=== PATIENT | male | born 1990 | race Caucasian/White ===

== ENCOUNTER 2022-06-13 14:03 | Emergency (ER) | payer BC, SELFPAY ==
--- NOTE | 2022-06-13 14:04 | ED.LOWEXIN ---
HPI - Extremity Injury (Lower) General Chief Complaint: Extremity Problem,Nontraumatic Stated Complaint: Right Leg/Ankle Pain Time Seen by Provider: 06/13/22 14:04 Source: patient Mode of arrival: ambulatory Limitations: no limitations History of Present Illness HPI Narrative: Marciano is a 32-year-old male patient presenting to the clinic today with complaints of right leg/ankle pain since this morning. He reports he noticed a knot to his right lower lateral leg with mild swelling. He thinks he may have a skin infection. He denies any fever or chills. Related Data Home Medications Medication Instructions Recorded Confirmed amlodipine 5 mg tablet 5 mg PO DAILY 06/13/22 06/13/22 losartan 100 1 tablet PO DAILY 06/13/22 06/13/22 mg-hydrochlorothiazide 12.5 mg tablet Allergies Allergy/AdvReac Type Severity Reaction Status Date / Time No Known Drug Allergies Allergy Mild Other Verified 06/13/22 14:06 Review of Systems Review of Systems: Pertinent positives per HPI. Patient denies any fever, chills, rash, headache, visual changes, dizziness, cough, runny nose, sore throat, shortness of breath, chest pain, palpitations, nausea, vomiting, diarrhea, constipation, abdominal pain, or any urinary issues. PMFSH Comments At the time of my signature, I reviewed and agree with the nursing past medical, surgical, social, and family history. There is no relevant family history pertinent to the patient complaint. Exam Narrative: General: Well-developed, well nourished, in no apparent distress Head: Normocephalic, atraumatic. Cardio: Regular rate and rhythm, s1 and s2 normal, no murmur appreciated. Resp: Clear to auscultation bilaterally, no rhonchi, rales, wheezing or rubs. Integumentary: [place], warm, and dry, mild swollen area with infected hair sore to the right lateral lower extremity. Course Course Emergency Course: Portions of this record may have been created with voice recognition software. Level of Care: Express Care Visit Vital Signs Vital signs: Vital Signs Temperature 37.4 C 06/13/22 14:20 Pulse Rate 116 H 06/13/22 14:20 Respiratory Rate 16 06/13/22 14:20 Blood Pressure 138/93 H 06/13/22 14:20 Pulse Oximetry 16 L 06/13/22 14:20 Oxygen Delivery Room Air 06/13/22 14:20 Temperature 37.4 C 06/13/22 14:20 Pulse Rate 116 H 06/13/22 14:20 Respiratory Rate 16 06/13/22 14:20 Blood Pressure 138/93 H 06/13/22 14:20 Pulse Oximetry 16 L 06/13/22 14:20 Oxygen Delivery Room Air 06/13/22 14:20 Vital signs reviewed MDM - Extremity Injury (Lower) MDM Narrative Medical decision making narrative: At the time of visit patient is resting comfortably on the exam table. I suspect as folliculitis. Prescription for doxycycline was sent to the pharmacy and supportive measures were discussed with the patient in the patient's significant other. Differential Diagnosis Differential diagnosis: Likely other (Folliculitis, skin infection, cellulitis, abscess) Discharge Plan Discharge Clinical Impression: Folliculitis Patient Disposition: Home, Self-Care Condition: Stable Instructions: Antibiotic Form, Folliculitis (ED) Additional Instructions: Take prescription medications only as prescribed-doxycycline Increase fluids and stay well hydrated Tylenol/motrin for pain/fever Go to the ED if you develop a worsening in your condition- high fever not controlled by Tylenol or Motrin, dehydration, weakness, lethargy, shortness of breath, increase in swelling, increase in redness or pain, or chest pain. Follow up with your PCP in 3-5 days if symptoms persist. Prescriptions: New doxycycline hyclate 100 mg capsule 100 mg PO BID 7 Days Qty: 14 0RF No Action amlodipine 5 mg tablet 5 mg PO DAILY losartan-hydrochlorothiazide 100-12.5 mg Tablet 1 tablet PO DAILY Follow-up/Referrals: Frannie,Radha Hauser MD [Primary Care Provider] - Stand Alone Forms:
[2022-06-13 14:20] VITALS: BP 138/93; PULSE 116; RESP 16; TEMP 37.4; O2SAT 16
== END 2022-06-13 14:54 | disposition home or self-care (01) ==
PROVIDERS: Emergency Provider Nurse Practitioner Family; PCP Family Medicine
DX: L73.9 Follicular disorder, unspecified (principal); I10 Essential (primary) hypertension
CPT/HCPCS: 99213; G0463

== ENCOUNTER 2023-07-02 08:12 | Emergency (ER) | payer BC, SELFPAY ==
[2023-07-02 08:24] VITALS: BP 138/103; PULSE 101; RESP 16; TEMP 37.4; O2SAT 98
--- NOTE | 2023-07-02 08:30 | ED.URI ---
HPI - URI/Sore Throat General Chief Complaint: Upper Respiratory Infection Stated Complaint: throat pain,sinus Time Seen by Provider: 07/02/23 08:30 Source: patient, RN notes reviewed and old records reviewed Mode of arrival: ambulatory Limitations: no limitations History of Present Illness HPI Narrative: 33-year-old male presents to the [facility] with a sore throat since Saturday states it was worse on Saturday. Denies fevers. Has been taking DayQuil and NyQuil. Onset (ago): day(s) (3) Treatments prior to arrival: cold medicine Related Data Home Medications Medication Instructions Recorded Confirmed amlodipine 5 mg tablet 5 mg PO DAILY 06/13/22 07/02/23 losartan 100 1 tablet PO DAILY 06/13/22 07/02/23 mg-hydrochlorothiazide 12.5 mg tablet Allergies Allergy/AdvReac Type Severity Reaction Status Date / Time No Known Drug Allergies Allergy Mild Other Verified 07/02/23 08:24 Review of Systems Review of Systems: All systems reviewed & are unremarkable except as noted in HPI and below Constitutional: Constitutional: Reports no additional constitutional complaints Eyes: Eyes: Reports no additional eye complaints ENT: Reports as per HPI and Reports sore throat Cardiovascular: Cardiovascular: Reports no additional cardiovascular complaints, Denies chest pain and Denies dyspnea Respiratory: Respiratory: Reports no additional respiratory complaints, Denies chest congestion, Denies cough and Denies dyspnea Gastrointestinal: Gastrointestinal: Reports no additional gastrointestinal complaints, Denies abdominal pain, Denies nausea and Denies vomiting Musculoskeletal: Musculoskeletal: Reports no additional musculoskeletal complaints Integumentary/Breasts: Skin/Breast: Reports system reviewed and no additional complaints, except as docu Neurologic: Reports system reviewed and no additional complaints, except as documented Psychiatric: Psychiatric: Reports no additional psychiatric complaints Allergic/Immunologic: Allergic/Immunologic: Reports no additional allergic/immunologic complaints PMFSH Past Medical History Medical History History of high blood pressure Comments At the time of my signature, I reviewed and agree with the nursing past medical, surgical, social, and family history. There is no relevant family history pertinent to the patient complaint. Exam Const: General: cooperative, healthy appearing, comfortable, no acute distress, well developed, alert and well nourished Nutritional Appearance: well nourished Orientation/consciousness: patient oriented x3 Limitations: no limitations HENMT: Head: normal to inspection Ears: hearing grossly normal bilaterally, external ears normal, TM's normal bilaterally, EAC's normal, mastoids normal and no periauricular adenopathy Face/Nose/Sinus: Normal external nose present, Normal nares present, Normal nasal mucous membranes and turbinates present, No nasal discharge present, normal facial exam, face symmetric and No sinus tenderness Face and sinus: normal facial exam and face symmetric Mouth: Yes Normal oral and palatal mucosa present, Yes lip normal, Yes tongue normal and Yes moist mucous membranes Throat: posterior oropharynx normal, uvula midline, abnormal tonsil bilateral hypertrophy 2+; no erythema and no exudates and postnasal drainage Eyes: General: appearance normal, both eyes and all related structures Alignment and Position: alignment normal Periorbital: periorbital findings normal Pupils: Equal, round and reactive pupils present EOM: EOMs intact bilaterally Neck: Neck: normal visual inspection, full ROM, no lymphadenopathy and no meningeal signs Chest: Chest palpation & inspection: normal inspection of the chest Resp: Effort & Inspection: normal respiratory effort and able to speak in complete sentences Auscultation: clear to auscultation bilaterally, no crackles, no rales, no rhonchi
== END 2023-07-02 09:00 | disposition home or self-care (01) ==
PROVIDERS: Emergency Provider Nurse Practitioner; PCP Family Medicine
DX: J06.9 Acute upper respiratory infection, unspecified (principal); R09.82 Postnasal drip; J02.9 Acute pharyngitis, unspecified; I10 Essential (primary) hypertension
CPT/HCPCS: 87081; 87804; 87880; 99213; G0463

== ENCOUNTER 2023-12-13 18:42 | Emergency (ER) | payer BC, SELFPAY ==
--- NOTE | ~2023-12-13 | XR_ITS ---
XR foot LT min 3V Ordering provider: NOMAN Angulo History: . left foot pain . Comparison: December 13, 2023 ankle x-ray. FINDINGS: BONES: No acute fracture or dislocation. Old healed fracture of the fifth metatarsal bone is noted. O ld bony fragments is seen near to the medial malleolus and near to the lateral malleolus.. JOINT SPACES: Normal. No tarsal coalition. SOFT TISSUES: Normal. IMPRESSION: No acute osseous abnormality left foot. Old healed fracture in the fifth metatarsal bone. Old chip fractures in the lateral and medial malleoli area. Reviewed, dictated and finalized at location A.
--- NOTE | ~2023-12-13 | XR_ITS ---
XR ankle LT min 3V Ordering provider: NOMAN Angulo History: . left ankle pain, no injury, hx avulsion fx 8 years ago . Comparison: April 20, 2016 FINDINGS: BONES: No acute fracture or dislocation. Fragment seen near to the fibula is unchanged. Healed fracture in the fifth metatarsal bone is highly suggestive. Calcaneal spur. JOINT SPACES: The ankle mortise is normal. SOFT TISSUES: Normal. IMPRESSION: No acute osseous abnormality left ankle. Old fracture in the area of the fibula unchanged. Healed old fracture in the fifth metatarsal bone. Clinical correlation advised. Reviewed, dictated and finalized at location A.
[2023-12-13 18:54] VITALS: BP 156/85; PULSE 124; RESP 18; TEMP 37.1; O2SAT 100
--- NOTE | 2023-12-13 19:26 | ED.GENADULT ---
HPI - General Adult General Chief complaint: Extremity Injury, Lower Stated complaint: Left Ankle Pain Source: patient Mode of arrival: ambulatory Limitations: no limitations History of Present Illness HPI narrative: Patient presents for evaluation of pain in the left ankle and foot for the last week. He cannot identify any recent precipitating cause or injury. He indicates in 2016 he twisted his ankle and had some type of fracture and soft tissue injury. He indicates that over the course of last week his pain has varied between a level of 5-7 on a scale of 1-10. He describes the pain as sharp. He has taken ibuprofen for symptoms with minimal improvement thereafter. Weight-bearing and movement make his symptoms worse. He reports a tingling sensation in the bottom of his foot. Related Data Home Medications Medication Instructions Recorded Confirmed amlodipine 5 mg tablet 5 mg PO DAILY 06/13/22 12/13/23 losartan 100 1 tablet PO DAILY 06/13/22 12/13/23 mg-hydrochlorothiazide 12.5 mg tablet Allergies Allergy/AdvReac Type Severity Reaction Status Date / Time No Known Drug Allergies Allergy Mild Other Verified 12/13/23 18:45 Review of Systems Review of Systems: CONSTITUTIONAL: Denies fever, chills, or sweats. EYES: Denies visual changes, redness, or discharge. ENT: Denies rhinorrhea, congestion, sore throat, or otalgia. CARDIOVASCULAR: Denies chest pain, palpitations, or edema. RESPIRATORY: Denies cough or dyspnea. GASTROINTESTINAL: Denies abdominal pain, nausea, vomiting, or diarrhea. GENITOURINARY: Denies dysuria or hematuria. SKIN: Denies rash or itching. MUSCULOSKELETAL: Reports pain in the left foot and ankle NEUROLOGIC: Denies headache, numbness, dizziness, or weakness. PSYCHIATRIC: Denies anxiety or depression. [facility] Past Medical History Medical History (Updated 12/13/23 @ 20:08 by NOMAN Angulo, JERSON) History of high blood pressure Surgical History Surgical History No pertinent past surgical history Family History Family History Mother Family history non-contributory Social History Social History Smoking status: Never smoker Gender identity (if verbalized by the patient): Male Sexual Orientation (if Verbalized by the Patient): Straight or Heterosexual Spiritual care concerns: No Exam Narrative: GENERAL: Well-appearing, well-nourished, and in no acute distress. HEAD: Normocephalic, atraumatic. EYES: PERRLA and EOMI. ENT: Nares clear, no rhinorrhea or epistaxis. Mucous membranes moist. Oropharynx without tonsillar hypertrophy exudate or other lesions. Bilateral TMs pearly hooper nonbulging NECK: Supple. No adenopathy or masses. No carotid bruits or JVD CHEST: Clear to auscultation. No respiratory distress. No wheezes rales or rhonchi HEART: Regular rate and rhythm. No murmur heard. Normal peripheral pulses. ABDOMEN: Soft, nontender, nondistended, normal active bowel sounds. EXTREMITIES: able to dorsi and plantar flex of left foot but does so with hesitancy secondary to pain. There is tenderness in the anteromedial aspect and anterolateral aspect of the proximal left foot. no gross swelling. No crepitus or deformity. SKIN: Warm, dry, no rash. NEURO: No focal deficits. Alert and oriented x3. PSYCH: Normal mood and affect. Course Course Emergency Course: This is a 33-year-old male who presented for evaluation of left foot and ankle pain. X-rays were negative for acute fracture. Was provided with Kar wrap. He would like to take ibuprofen for pain at home. Advised on RICE therapy. Follow-up with primary provider. Go to the ER for worsening symptoms. Patient in agreement with plan of care. Level of Care: Express Care Visit Vital Signs Vital signs: Vital Signs Temper
== END 2023-12-13 20:10 | disposition home or self-care (01) ==
PROVIDERS: Emergency Provider Nurse Practitioner; PCP Family Medicine
DX: S96.912A Strain of unspecified muscle and tendon at ankle and foot level, left foot, initial encounter (principal); X58.XXXA Exposure to other specified factors, initial encounter; I10 Essential (primary) hypertension
CPT/HCPCS: 73610; 73630; 99213; G0463

== ENCOUNTER 2024-08-14 | Day surgery (SDC) | payer OTHER, SELFPAY ==
[2024-08-10 11:33] VITALS: BMI 36.1
--- OUTSIDE RECORDS SUMMARY | 2024-08-14 00:03 | XMS_ITS | Encounter Summary ---
Author Organization [facility] Address [address] [place] [id number] Care Team Providers Care Cnc Maintenance Technician Name Role Phone Radha Dangelo MD Primary Care Provider [phone] Encounter Details Date Type Department Care Team (Late st Contact Info) Description 03/30/2017 Abstract [place] [address] , Generic ConversionMD Social History Tobacco Use Types Packs/Day Years Used Date Smoking Tobacco: Never Assessed Sex and Gender Information Value Date Recorded Sex Assigned at Not on file Legal Sex Male 4:21 PM CDT Gender Identity Not on file Sexual Orientation Not on file documented as of this encounter Plan of Treatment Not on file documented as of this encounter Visit Diagnoses Not on filedocumented in this encounter Care Teams Cnc Maintenance Technician Relationship Specialty Start Date End Date Radha Dangelo MD [address] [address] PCP - General 10/11/14 documented as of this encounter
--- OUTSIDE RECORDS SUMMARY | 2024-08-14 00:03 | XMS_ITS | Clinical Summary ---
Author Organization [facility] Address [address] [place] [id number] Care Team Providers Care Hand Bootmaker Name Role Phone Radha Dangelo MD Primary Care Provider [phone] Social History Tobacco Use Types Packs/Day Years Used Date Smoking Tobacco: Never Assessed Sex and Gender Information Value Date Recorded Sex Assigned at Not on file Legal Sex Male 4:21 PM CDT Gender Identity Not on file Sexual Orientation Not on file Plan of Treatment Health Maintenance Due Date Last Done Comments Annual Physical 1995 Hepatitis C 2010 DTaP, Tdap and Td Vaccines ( 1 - Tdap) 2011 Hepatitis B Vaccines (1 of 3 - 19+ 3-dose series) 2011 COVID-19 Vaccine (2023-2 5 season) 2024 Influenza Adult (#1) 2024 HPV Vaccines Aged Out No longer eligi ble based on patient's age to complete this topic Meningococcal B Vaccine Aged Out No l onger eligible based on patient's age to complete this topic Meningococcal Vaccine Aged Out No suresh angie eligible based on patient's age to complete this topic Pneumococcal Vaccine: Pediat rics (0 to 5 Years) and At-Risk Patients (6 to 64 Years) Aged Out No longer eligible b ased on patient's age to complete this topic RSV Immunizations Under 20 Months Aged Out No longer eligible based on patient's age to complete this topic Care Teams Hand Bootmaker Relationship Specialty Start Date End Date Radha Dangelo MD [address] [address] PCP - General 10/11/14
[2024-08-14 13:03] VITALS: BP 154/93; PULSE 98; RESP 18; TEMP 36.1; O2SAT 99; BMI 35.6
[2024-08-14] MEDS: LACTATED RINGERS 1,000 ML 150 ML IV CONT (13:10)
--- NOTE | 2024-08-14 13:19 | P.PNAN_ITS ---
Anes - Initial Pre Proc Eval Procedure: Operation Date: 08/14/24 14:00 Proposed Procedures p Esophagogastroduodenoscopy - Iftikhar Awad MD Date/Time: 08/14/24 13:19 Surgeon: Iftikhar Awad MD Pre Op Diagnosis: GERD,Dysphagia Patient Data Age: 34 Gender: M Height: 1.98 m Weight: 139.7 kg Last Vital Signs Temp 36.1 C L 08/14/24 13:03 Pulse 98 08/14/24 13:03 Resp 18 08/14/24 13:03 BP 154/93 H 08/14/24 13:03 Pulse Ox 99 08/14/24 13:03 O2 Del Method Room Air 08/14/24 13:03 Allergies Allergy/AdvReac Type Severity Reaction Status Date / Time No Known Drug Allergies Allergy Mild Other Verified 08/14/24 13:00 Home Medications ?Medication ?Instructions ?Recorded ?Confirmed ?Type fluticasone propionate 50 2 spray intranasal DAILY #16 grams 07/02/23 08/14/24 Rx mcg/actuation nasal spray,suspension (Flonase Allergy Relief) CBD topical 4-6XD 06/29/24 06/29/24 History cyclobenzaprine 10 mg tablet 10 mg PO BID PRN muscle spasm #20 06/29/24 08/10/24 Rx tabs amlodipine 2.5 mg tablet 2.5 mg PO DAILY #90 tabs 08/04/24 08/14/24 Rx irbesartan 150 1 tablet PO . q.a.m. #90 tabs 08/04/24 08/14/24 Rx mg-hydrochlorothiazide 12.5 mg tablet omeprazole 20 mg tablet,delayed 20 mg PO DAILY #90 tabs 08/04/24 08/10/24 Rx release Patient hx anesthesia problems: none Family hx anesthesia problems: none Results Review: All pre-operative results and documents have been reviewed as part of the pre- operative evaluation. [facility] Past Medical History Medical History Mixed hyperlipidemia cholesterol 224, triglycerides 307, HDL 40, LDL 140 with ratio 5.6 on 06/20/2024. Chronic low back pain without sciatica Encounter for wellness examination in adult Seasonal allergic rhinitis Chronic tonsillar hypertrophy BMI 36.0-36.9,adult Obesity (BMI 30-39.9) Dysphagia GERD (gastroesophageal reflux disease) Essential hypertension History of high blood pressure Surgical History Surgical History No pertinent past surgical history Family History Family History Mother Family history non-contributory Social History Social History Smoking status: Never smoker Alcohol intake: current Substance use: never Gender identity (if verbalized by the patient): Male Sexual Orientation (if Verbalized by the Patient): Straight or Heterosexual Spiritual care concerns: No Anes - Eval Final PreProcedure Day of Procedure 08/14/24 13:19 Patient weight: obese Heart: regular rate and rhythm Lungs: decreased breath sounds Airway: Mallampati scale class II Neurological: alert and oriented Last oral intake: >/= 8 hours ASA classification: III Emergent: no Anesthetic plan: proceed Anesthesia type and monitoring: general GIVS and standard monitoring Results Review: All pre-operative results and documents have been reviewed as part of the pre- operative evaluation. Informed Consent: The patient's anesthetic plan and its attendant risks and benefits were discussed with the patient/family/POA. Questions were solicited and answers provided to the satisfaction of the patient/family/POA.
--- NOTE | 2024-08-14 13:36 | P.HP_ITS ---
History of Present Illness History of Present Illness Consent: Risks, benefits, and alternatives have been discussed and questions answered. Patient agrees to proceed with procedure. Chief complaint: GERD,Dysphagia Narrative: Marciano Lanier is a 34 year old male here for first egd, h/o gerd on omeprazole doing better but sometimes dysphagia- food won't go down and have to regurgitate Review of Systems Review of Systems: All systems reviewed & are unremarkable except as noted in HPI and below PMFSH Past Medical History Medical History Mixed hyperlipidemia cholesterol 224, triglycerides 307, HDL 40, LDL 140 with ratio 5.6 on . Chronic low back pain without sciatica Encounter for wellness examination in adult Seasonal allergic rhinitis Chronic tonsillar hypertrophy BMI 36.0-36.9,adult Obesity (BMI 30-39.9) Dysphagia GERD (gastroesophageal reflux disease) Essential hypertension History of high blood pressure Surgical History Surgical History No pertinent past surgical history Family History Family History Mother Family history non-contributory Social History Social History Smoking status: Never smoker Alcohol intake: current Substance use: never Gender identity (if verbalized by the patient): Male Sexual Orientation (if Verbalized by the Patient): Straight or Heterosexual Spiritual care concerns: No Meds Home Medications and Allergies Home Medications ?Medication ?Instructions ?Recorded ?Confirmed ?Type fluticasone propionate 50 2 spray intranasal DAILY #16 grams 07/02/23 08/14/24 Rx mcg/actuation nasal spray,suspension (Flonase Allergy Relief) CBD topical 4-6XD 06/29/24 06/29/24 History cyclobenzaprine 10 mg tablet 10 mg PO BID PRN muscle spasm #20 06/29/24 08/10/24 Rx tabs amlodipine 2.5 mg tablet 2.5 mg PO DAILY #90 tabs 08/04/24 08/14/24 Rx irbesartan 150 1 tablet PO . q.a.m. #90 tabs 08/04/24 08/14/24 Rx mg-hydrochlorothiazide 12.5 mg tablet omeprazole 20 mg tablet,delayed 20 mg PO DAILY #90 tabs 08/04/24 08/10/24 Rx release Allergies Allergy/AdvReac Type Severity Reaction Status Date / Time No Known Drug Allergies Allergy Mild Other Verified 08/14/24 13:00 Vital Signs Vital Signs - 24 hr 08/14/24 13:03 Temperature 97 F L Pulse Rate 98 Respiratory Rate 18 Blood Pressure 154/93 H Pulse Oximetry 99 Oxygen Delivery Room Air Exam Const: General: comfortable and no acute distress HENMT: Face/Nose/Sinus: Normal nares present Eyes: General: appearance normal, both eyes and all related structures Neck: Neck: no JVD Resp: Auscultation: clear to auscultation bilaterally Cardio: Rate: regular rate Rhythm: regular rhythm GI: Inspection: non-distended GI Palp: Yes Soft to palpation Skin: General skin exam: normal color Neuro: General: gait normal Speech: normal speech Extrem: General: normal to inspection Psych: Mental Status: mental status grossly normal Assessment and Plan Assessment and plan (1) GERD (gastroesophageal reflux disease): Qualifiers: Esophagitis presence: esophagitis presence not specified Qualified Code(s): K21.9 - Gastro-esophageal reflux disease without esophagitis Code(s): K21.9 - Gastro-esophageal reflux disease without esophagitis Status: Acute Assessment and Plan: egd with bx assess if EoE (2) Dysphagia: Qualifiers: Dysphagia type: unspecified Qualified Code(s): R13.10 - Dysphagia, unspecified Code(s): R13.10 - Dysphagia, unspecified Status: Acute
[2024-08-14] MEDS: BENZOCAINE (*SP) 60 ML SPRAY CAN (HURRICAINE) 1 SPRAY MUCOUS MEM (13:40)
[2024-08-14 13:53] VITALS: BP 134/91; PULSE 96; RESP 26; O2SAT 99
[2024-08-14 14:03] VITALS: BP 132/87; PULSE 91; RESP 20; O2SAT 99
[2024-08-14 14:13] VITALS: BP 120/92; PULSE 80; RESP 18; O2SAT 100
== END 2024-08-14 14:24 | disposition home or self-care (01) ==
PROVIDERS: PCP Family Medicine; Referring Provider Family Medicine; Visit Provider Internal Medicine Gastroenterology
PROC: 0DJ08ZZ Inspection of Upper Intestinal Tract, Via Natural or Artificial Opening Endoscopic (ICD-10-PCS; CPT 43249; principal; 2024-08-14 14:00)
DX: K22.2 Esophageal obstruction (principal); K21.00 Gastro-esophageal reflux disease with esophagitis, without bleeding; E66.9 Obesity, unspecified; Z68.35 Body mass index [BMI] 35.0-35.9, adult
CPT/HCPCS: 43249; 43239; 88305; C1726; J1596; J2003; J2704; J7120

== ENCOUNTER 2024-11-11 11:31 | Emergency (ER) | payer OTHER, SELFPAY ==
--- NOTE | ~2024-11-11 | XR_ITS ---
XR ankle LT min 3V Ordering provider: Alberto Coates APRN History: . ankle pain/injury-roll injury . Comparison: None. FINDINGS: BONES: No acute fracture or dislocation. JOINT SPACES: The ankle mortise is normal. SOFT TISSUES: Normal. Calcaneus spur. Ossification of the insertion of the tendo Achilles. IMPRESSION: No definite acute osseous abnormality left ankle. Reviewed, dictated and finalized at location A.
[2024-11-11 11:38] VITALS: BP 181/150; PULSE 125; RESP 18; TEMP 36.8; O2SAT 98
[2024-11-11 11:44] VITALS: BP 131/90
--- NOTE | 2024-11-11 11:44 | ED_ITS ---
HPI - Extremity Injury (Lower) General Chief Complaint: Extremity Injury, Lower Stated Complaint: LT Ankle Injury Time Seen by Provider: 11/11/24 11:44 Source: patient Mode of arrival: ambulatory Limitations: no limitations History of Present Illness HPI Narrative: Marciano is a 34-year-old male patient presenting to the clinic today with complaints of a left ankle injury/pain. He reports he rolled his left ankle on Saturday night. States having pain to the lateral and medial ankle. Pain has gradually gotten worse. Has been resting, icing, and elevating and taking ibuprofen. History of fracture to the left foot in the past Related Data Home Medications ?Medication ?Instructions ?Recorded ?Confirmed ?Last Taken ?Type CBD topical 4-6XD 06/29/24 06/29/24 Unknown History Allergies Allergy/AdvReac Type Severity Reaction Status Date / Time No Known Drug Allergies Allergy Mild Other Verified 11/11/24 11:35 Review of Systems Review of Systems: Pertinent positives per HPI. Patient denies any fever, chills, rash, headache, visual changes, dizziness, cough, runny nose, sore throat, shortness of breath, chest pain, palpitations, nausea, vomiting, diarrhea, constipation, abdominal pain, or any urinary issues. PENDING SALE TO [facility] Past Medical History Medical History Acute non-recurrent maxillary sinusitis Mixed hyperlipidemia cholesterol 224, triglycerides 307, HDL 40, LDL 140 with ratio 5.6 on 06/20/2024. Chronic low back pain without sciatica Encounter for wellness examination in adult Seasonal allergic rhinitis Chronic tonsillar hypertrophy BMI 36.0-36.9,adult Obesity (BMI 30-39.9) Dysphagia GERD (gastroesophageal reflux disease) normal EGD 08/14/2024 with esophageal ring dilated. chronic reflux esophagitis on biopsies. Essential hypertension History of high blood pressure Surgical History Surgical History No pertinent past surgical history Family History Family History Mother Family history non-contributory Social History Social History Smoking status: Never smoker Alcohol intake: current Substance use: never Substance use type: does not use Living arrangements: with family Gender identity (if verbalized by the patient): Male Sexual Orientation (if Verbalized by the Patient): Straight or Heterosexual Spiritual care concerns: No Comments At the time of my signature, I reviewed and agree with the nursing past medical, surgical, social, and family history. There is no relevant family history pertinent to the patient complaint. Exam Narrative: General: Well-developed, well nourished, in no apparent distress Head: Normocephalic, atraumatic. Cardio: Regular rate and rhythm, s1 and s2 normal, no murmur appreciated. Resp: Clear to auscultation bilaterally, no rhonchi, rales, wheezing or rubs. Musculoskeletal: No deformity, tender to palpation over the lateral and medial left ankle, pain with plantar and dorsal flexion against resistance, pain with valgus and varus testing, grossly normal range of motion, muscle strength strong and equal, peripheral pulse strong, no edema, no cyanosis, normal gait and station Course Course Emergency Course: Portions of this record may have been created with voice recognition software. Level of Care: Express Care Visit Vital Signs Vital signs: Vital Signs Temperature 36.8 C 11/11/24 11:38 Pulse Rate 125 H 11/11/24 11:38 Respiratory Rate 18 11/11/24 11:38 Blood Pressure 181/150 H 11/11/24 11:38 Pulse Oximetry 98 11/11/24 11:38 Oxygen Delivery Room Air 11/11/24 11:38 Temperature 36.8 C 11/11/24 11:38 Pulse Rate 125 H 11/11/24 11:38 Respiratory Rate 18 11/11/24 11:38 Blood Pressure 131/90 11/11/24 11:44 Pulse Oximetry 98 11/11/24 11:38 Oxygen Delivery Room Air 11/11/24 11:38 Vital signs reviewed MDM - Extremity Injury (Lower) MDM Narrative Medical decision making narrative: At the time of visit patient is resting comfortably on the exam table. Patient appears to be nontoxic. Diagnostics: X-ray of the left ankle was performed and was negative for any sign of fracture or malalignment. Plan: I suspect patient has an ankle sprain. Supportive measures were discussed with the patient and they voiced understanding discharge instructions and agrees to treatment plan. Return precautions reviewed Differential Diagnosis Differential diagnosis: Likely ankle sprain and strain, ankle fracture and other (Soft tissue injury, ankle contusion) Imaging Data Radiologist's impression: ITS Impressions Ankle X-Ray 11/11/24 12:08 IMPRESSION: No definite acute osseous abnormality left ankle. Discharge Plan Discharge Clinical Impression: Left ankle sprain Qualifiers: Encounter type: initial encounter Involved ligament of ankle: unspecified ligament Qualified Code(s): S93.402A - Sprain of unspecified ligament of left ankle, initial encounter Patient Disposition: Home Condition: Stable Instructions: Antibiotic Form, Ankle Sprain (ED), Ankle Stirrup Splint (ED) Additional Instructions: Left ankle X-rays negative for any sign of fracture or malalignment. May wear ankle strep splint when ambulating/bearing weight Rest, ice, elevate, and wear cristiana wrap as directed Tylenol/motrin for pain as discussed. Gradually bear weight No running or sports until healed. Follow up with your PCP if symptoms persist more than 1 week. Patient Language: Colombian Prescriptions: No Action fluticasone propionate [Flonase Allergy Relief] 50 mcg/actuation spray,suspension 2 spray intranasal DAILY Qty: 16 0RF Rx Instructions: administer into each nostril CBD topical 4-6XD omeprazole 20 mg tablet,delayed release (DR/EC) 20 mg PO DAILY Qty: 90 3RF amlodipine 2.5 mg tablet 2.5 mg PO DAILY Qty: 90 3RF irbesartan-hydrochlorothiazide 150-12.5 mg tablet 1 tablet PO . q.a.m. Qty: 90 3RF Follow-up/Referrals: Renato Jean MD [Primary Care Provider] - Stand Alone Forms: Work/School Release IP Time of Disposition: 12:15 Quality NIHSS Nursing Documentation ED NIHSS nursing documentation: reviewed/agree
--- OUTSIDE RECORDS SUMMARY | 2024-11-11 13:21 | XMS_ITS | Patient Health Record ---
Author Organization [facility] Address [address] [place] [address] Care Team Providers Care Administrative Resident Name Role Phone Kevin Mehta Primary Care Provider [phone] Faith Sanchez Unavailable [phone] Reason For Referral No Information Medications Medication SIG (Take, Route, Fr equency, Duration) Notes Start Date End Date Status Zoloft 100 MG 1 tablet Orally Once a day for 30 day(s) Active Melatonin 3 MG 1-2 tablet at bedtim e as needed with food Orally Once a day for 30 day(s) Active Social History Tobacco Use: Social History Observation Description Date Details (start date - stop date) Never Smoker NA - NA Dont use, Tobacco Use/Smoking Question Answer Notes Are you a nonsmoker Additional Findings: Tobacco Non-User Current no n-smoker Problems Problem Type SNOMED Code ICD Code Onset Dates Problem Status W/U Status Risk Notes Problem Vitamin D deficiency, unspecified (E55.9) Active confirmed Problem Anxiety (70293138) Anxiety (F41.9) Active confirmed Problem [id number] Moderate episode of recurrent major depressive disorder (F33.1) Active confirmed Plan Of Treatment No Information Insurance Providers Payer Name Payer Address Payer Phone Subscriber Number Group Number Insured Name Patient Relationship to Insured Coverage Start Date Coverage End Date [facility] [address] [place] [phone] [id number] Marciano Lanier Self - patient is the insured 7 Medical (General) History Medical History History ICD Code epilepsy
--- OUTSIDE RECORDS SUMMARY | 2024-11-11 13:21 | XMS_ITS | Clinical Summary ---
Author Organization [facility] Address [address] [place] [address] Care Team Providers Care Zipper Repairer Name Role Phone Unavailable Primary Care Provider Unavailabl e Source Comments [facility],non-owned Affiliates and Associated Physician Practices is amultiple site organization consisting of ambulatory clinics and hospital sitesin [place], [place], [place] and [place]. This disclosure is being madepursuant to the Care Everywhere program and may not contain all information available regarding this patient. 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 Gender Identity Not on file Sexual Orientation Not on file Plan of Treatment Health Maintenance Due Date Last Done Comments HIV SCREENING 2007 HEPATITIS C SCREENING 03/08/2010 DTAP/TDAP/TD VACCINES (1 - Tdap) 2011 HEPATITIS B VACCINE (1 of 3 - 19+ 3-dose series) 2011 COVID-19 VACCINE (1 - 2023-2 5 season) 2024 DEPRESSION SCREENING 05/27/2024 INFLUENZA VACCINE (Season Ended) 2025 ZOSTER VACCINE (1 of 2) 2042 HIB VACCINE Aged Out No longer eligi ble based on patient's age to complete this topic HPV VACCINE Aged Out No longer eligi ble based on patient's age to complete this topic MENINGOCOCCAL (Group B) VACC INE SHARED DECISION-MAKING Aged Out No longer eligibl e based on patient's age to complete this topic MENINGOCOCCAL GROUPS A/C/Y/W VACCINE Aged Out No longer eligible b ased on patient's age to complete this topic PNEUMOCOCCAL VACCINE Aged Out No long er eligible based on patient's age to complete [place] [address] [employer]
--- OUTSIDE RECORDS SUMMARY | 2024-11-11 13:21 | XMS_ITS | Encounter Summary ---
Author Organization [facility] Address [address] [place] [address] Care Team Providers Care Dietitian Consultant Name Role Phone Radha Dangelo MD Primary Care Provider [phone] Encounter Details Date Type Department Care Team (Late st Contact Info) Description 03/30/2017 Abstract [place] [address] , Generic ConversionMD Social History Tobacco Use [...] on filedocumented in this encounter Care Teams Dietitian Consultant Relationship Specialty Start Date End Date Radha Dangelo MD [address] [address] PCP - General 10/11/14 documented as of this encounter
== END 2024-11-11 12:18 | disposition home or self-care (01) ==
PROVIDERS: Emergency Provider Nurse Practitioner Family; PCP Family Medicine
DX: S93.402A Sprain of unspecified ligament of left ankle, initial encounter (principal); X50.9XXA Other and unspecified overexertion or strenuous movements or postures, initial encounter; I10 Essential (primary) hypertension; E78.2 Mixed hyperlipidemia; E66.9 Obesity, unspecified; Z68.37 Body mass index [BMI] 37.0-37.9, adult; K21.9 Gastro-esophageal reflux disease without esophagitis
CPT/HCPCS: 73610; 99213; G0463

== ENCOUNTER 2025-02-11 12:27 | Emergency (ER) | payer OTHER, SELFPAY ==
--- NOTE | ~2025-02-11 | XR_ITS ---
EXAMINATION: XR chest 2V DATE: 02/11/2025 13:37 INDICATION: Chest pain TECHNIQUE: frontal and lateral views of the chest were obtained. COMPARISON: None FINDINGS: Small linear focus of lingular discoid atelectasis/scarring at the anterolateral left lower lung zone. No other airspace opacities, pulmonary edema, pleural effusion or pneumothorax. The cardiomediastinal silhouette is normal. Visualized bones and soft tissues are unremarkable. IMPRESSION: 1. Mild lingular atelectasis. No other acute cardiopulmonary disease. Reviewed, dictated and finalized at location A.
--- NOTE | 2025-02-11 12:30 | ECG_ITS ---
Test Date: 2025-02-11 12:35:56 Measurements Intervals [place] Rate: 120 P: 41 MT: 147 QRS: 19 QRSD: 92 T: 53 QT: 314 QTc: 444 Interpretive Statements SINUS TACHYCARDIA NONSPECIFIC ST & T-WAVE ABNORMALITY ABNORMALECG No previous ECG available for comparison Electronically Signed On 02-11-2025 12:37:29 CDT by Guerrero Spangler M.D.
--- OUTSIDE RECORDS SUMMARY | 2025-02-11 12:31 | XMS_ITS | Encounter Summary ---
Author Organization [facility] Address [address] [place] [address] Care Team Providers Care Plasterer Helper Name Role Phone Radha Dangelo MD Primary Care Provider [phone] Encounter Details Date Type Department Care Team (Late st Contact Info) Description 03/30/2017 Abstract [place] [address] , Generic ConversionMD Social History Tobacco Use [...] on filedocumented in this encounter Care Teams Plasterer Helper Relationship Specialty Start Date End Date Radha Dangelo MD [address] [address] PCP - General 10/11/14 documented as of this encounter
--- OUTSIDE RECORDS SUMMARY | 2025-02-11 12:31 | XMS_ITS | Clinical Summary ---
Author Organization [facility] Address [address] [place] [address] Care Team Providers Care Wood Gang Sawyer Name Role Phone Radha Dangelo MD Primary Care Provider [phone] Social History Tobacco Use Types Packs/Day Years [...] of 3 - 19+ 3-dose series) 2011 HPV Vaccines (1 - 3-dose SCD M series) 2019 COVID-19 Vaccine (2023-2 5 season) 2025 Meningococcal B Vaccine Aged Out No l onger eligible based on patient's age to complete this topic Meningococcal Vaccine Aged Out No suresh angie eligible based on patient's age to complete this topic Pneumococcal Vaccine: Pediat rics (0 to 5 Years) and At-Risk Patients (6 to 49 Years) Aged Out No longer eligible b ased on patient's age to complete this topic RSV Immunizations Under 20 Months Aged Out No longer eligible based on patient's age to complete this topic Care Teams Wood Gang Sawyer Relationship Specialty Start Date End Date Radha Dangelo MD [address] [address] PCP - General 10/11/14
--- OUTSIDE RECORDS SUMMARY | 2025-02-11 12:31 | XMS_ITS | Clinical Summary ---
Author Organization [facility] Address [address] [place] [address] Care Team Providers Care Beading Machine Operator Name Role Phone Unavailable Primary Care Provider Unavailabl e Source Comments [facility],non-owned Affiliates and Associated Physician Practices is amultiple site organization consisting of ambulatory clinics and hospital sitesin [place] and [place]. This disclosure is being madepursuant to the Care Everywhere program and may not contain all information available regarding this patient. 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
[2025-02-11 12:35] VITALS: BP 133/93; PULSE 114; RESP 16; TEMP 36.3; O2SAT 98
--- NOTE | 2025-02-11 12:41 | ED.CHESTPAIN ---
HPI - Chest Pain General Chief Complaint: Chest Pain <Livedu Lebron APRN - Last Filed: 02/11/25 12:42> Stated Complaint: CP while eating lunch <Liv Lebron APRN - Last Filed: 02/11/25 12:42> Time Seen by Provider: 02/11/25 17:34 <Liv Lebron APRN - Last Filed: 02/11/25 12:42> Focused HPI: Patient is a 34-year-old male who presents to the ER with chest pain that started approximately an hour and a half prior to arrival. He reports he has also been experiencing shortness of breath. Patient reports the pain is midsternal. He denies any recent fevers, abdominal pain, or urinary symptoms. Patient reports the chest pain radiates to his back. 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 GENERAL:Ill-appearing, obese, and in no acute distress. HEAD: Normocephalic, atraumatic. CHEST: Clear to auscultation. ?No respiratory distress. HEART: Tachycardia, regular rhythm NEURO: ?Alert and oriented x3. Patient screened in triage and initial orders placed.? ?Additional care and disposition to be based upon?diagnostic testing and treatment. <Liv ElvinGuille Lebron APRN - Last Filed: 02/11/25 12:42> Focused HPI: Patient is a 34-year-old male who presents to the ER with chest pain that started approximately an hour and a half prior to arrival. He reports he has also been experiencing shortness of breath. Patient reports the pain is midsternal. He denies any recent fevers, abdominal pain, or urinary symptoms. Patient reports the chest pain radiates to his back. 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 GENERAL:Ill-appearing, obese, and in no acute distress. HEAD: Normocephalic, atraumatic. CHEST: Clear to auscultation. ?No respiratory distress. HEART: Tachycardia, regular rhythm NEURO: ?Alert and oriented x3. Patient screened in triage and initial orders placed.? ?Additional care and disposition to be based upon?diagnostic testing and treatment. <Rebeka Wallace PA-C - Last Filed: 02/11/25 19:10> Source: patient <Rebeka Wallace PA-C - Last Filed: 02/11/25 19:10> Mode of arrival: ambulatory <Rebeka Wallace PA-C - Last Filed: 02/11/25 19:10> Limitations: no limitations <Rebeka Wallace PA-C - Last Filed: 02/11/25 19:10> History of Present Illness HPI narrative: Agree with above HPI. States pain began around 1145 am after eating lunch. [place] as though something was stuck in his throat. Does note that he had an EGD earlier this year and had to have his esophagus dilated. History of hypertension. Reports his cholesterol levels have been elevated in the past, but he is not currently on medication. Denies history of diabetes, smoking, family history of heart disease. <Rebeka Wallace PA-C - Last Filed: 02/11/25 19:10> Related Data Home Medications: Home Medications ?Medication ?Instructions ?Recorded ?Confirmed ?Last Taken ?Type CBD topical 4-6XD 06/29/24 01/11/25 Unknown History <Liv Lebron, MANAGER OF [employer]ING - Last Filed: 02/11/25 12:42> Allergies/Adverse Reactions: Allergies Allergy/AdvReac Type Severity Reaction Status Date / Time No Known Drug Allergies Allergy Mild Other Verified 11/11/24 11:35 <Liv Lebron, MANAGER OF [employer] - Last Filed: 02/11/25 12:42> Review of Systems Review of Systems: All systems reviewed & are unremarkable except as noted in HPI. <Rebeka Wallace PA-C - Last Filed: 02/11/25 19:10> All systems reviewed & are unremarkable except as noted in HPI and below <Rebeka Wallace PA-C - Last Filed: 02/11/25 19:10> PMFSH Past Medical History Medical History: Medical History BMI 37.0-37.9, adult Acute non-recurrent maxillary sinusitis Mixed hyperlipidemia cholesterol 224, triglycerides 307, HDL 40, LDL 140 with ratio 5.6 on 06/20/2024. Chronic low back pain without sciatica Encounter for wellness examination in adult Seasonal allergic rhinitis Chronic tonsillar hypertrophy BMI 36.0-36.9,adult Obesity (BMI 30-39.9) Dysphagia GERD (gastroesophageal reflux disease) normal EGD 08/14/2024 with esophageal ring dilated. chronic reflux esophagitis on biopsies. Essential hypertension History of high blood pressure <Liv Lebron, MANAGER OF [employer] - Last Filed: 02/11/25 12:42> Surgical History Surgical History: Surgical History No pertinent past surgical history <Liv Lebron, MANAGER OF [employer] - Last Filed: 02/11/25 12:42> Family History Family History: Family History Mother Family history non-contributory <Liv Lebron, MANAGER OF [employer] - Last Filed: 02/11/25 12:42> Social History Social History: Social History Smoking status: Never smoker Alcohol intake: current Substance use: never Substance use type: does not use Living arrangements: with family Gender identity (if verbalized by the patient): Male Sexual Orientation (if Verbalized by the Patient): Straight or Heterosexual Spiritual care concerns: No <Liv Lebron, MANAGER OF [employer] - Last Filed: 02/11/25 12:42> Exam Narrative: GENERAL: Well appearing, obese with BMI of 37.0, non-toxic, in no acute distress. HEAD: Normocephalic, atraumatic. RESPIRATORY: Airway patent, respirations nonlabored. Clear to auscultation bilaterally, no rales, rhonchi, wheezing. No focal lung sounds. CARDIOVASCULAR: Regular rate and rhythm without murmurs, rubs, or gallops. ABDOMINAL: Soft, no significant tenderness throughout upper abdomen, nondistended. Normoactive BS. MUSCULOSKELETAL: Moves all extremities. No gross deformities. Minimal TTP over midsternal anterior chest wall. No peripheral edema. No calf tenderness. SKIN: Warm, dry, normal color. NEURO: A&O X3. Speech clear. Cranial nerves II-XII grossly intact. Steady gait. No ataxic movements. PSYCHIATRIC: Appropriate mood and affect. Normal interaction. <Rebeka Wallace PA-C - Last Filed: 02/11/25 19:10> Course Vital Signs Vital signs: Vital Signs Temperature 97.3 F L 02/11/25 12:35 Pulse Rate 114 H 02/11/25 12:35 Respiratory Rate 16 02/11/25 12:35 Blood Pressure 133/93 H 02/11/25 12:35 Pulse Oximetry 98 02/11/25 12:35 Temperature 97.3 F L 02/11/25 12:35 Pulse Rate 100 02/11/25 19:03 Respiratory Rate 18 02/11/25 19:03 Blood Pressure 140/90 02/11/25 19:03 Pulse Oximetry 97 02/11/25 19:03 Oxygen Delivery Room Air 02/11/25 17:36 <Liv Lebron, MANAGER OF [employer] - Last Filed: 02/11/25 12:42> Vital Signs Temperature 97.3 F L 02/11/25 12:35 Pulse Rate 114 H 02/11/25 12:35 Respiratory Rate 16 02/11/25 12:35 Blood Pressure 133/93 H 02/11/25 12:35 Pulse Oximetry 98 02/11/25 12:35 Temperature 97.3 F L 02/11/25 12:35 Pulse Rate 100 02/11/25 19:03 Respiratory Rate 18 02/11/25 19:03 Blood Pressure 140/90 02/11/25 19:03 Pulse Oximetry 97 02/11/25 19:03 Oxygen Delivery Room Air 02/11/25 17:36 <Rebeka Wallace PA-C - Last Filed: 02/11/25 19:10> MDM - Chest Pain MDM Narrative Medical decision making narrative: EKG with sinus tachycardia, no concerning changes. Troponin undetectable x2 D-dimer within normal range Chest x-ray clear Heart score 1 Remainder basic laboratory studies are unremarkable. Discussed overall reassuring workup, low suspicion for ACS at this time. Suspicious for gastritis/esophagitis, possible PUD, possible esophageal spasm versus narrowing/stricture again. Will start patient on Protonix. Recommended close follow-up with GI. Discussed additional dietary modifications. Patient safe for discharge home at this time. Patient given strict return precautions. He is in agreement with plan. Discharged in stable condition. Patient's blood pressure was mildly elevated here. He does appear mildly anxious. Is on medication for his blood pressure and has been compliant with this. Advised patient to monitor blood pressures at home and keep recording, follow closely with PCP. BP at time of d/c 140/90. <Rebeka Wallace PA-C - Last Filed: 02/11/25 19:10> Medical Records Data Attestation: I reviewed the patient's medical records. <Rebeka Wallace PA-C - Last Filed: 02/11/25 19:10> Lab Data Attestation: I reviewed the patient's lab results. <Rebeka Wallace PA-C - Last Filed: 02/11/25 19:10> Result diagrams: 02/11/25 12:43 02/11/25 12:43 <Liv Lebron APRN - Last Filed: 02/11/25 12:42> Labs: Lab Results 02/11/25 02/11/25 Range/Units 12:43 17:57 WBC 8.5 (4.5-10.0) K/mm3 RBC 5.38 (4.6-6.20) M/mm3 Hgb 15.7 (14.0-18.0) g/dL Hct 46.5 (42.0-52.0) % MCV 86.4 (80-100) fl MCH 29.2 (26-34) pg MCHC 33.8 (32-36) g/dl RDW 13.6 (11.5-14.5) % Plt Count 281 (150-375) k/mm3 MPV 9.7 (7.4-10.4) fl Immature Gran % (Auto) 0.6 H (0-0.5) % Neut % (Auto) 60.1 (45.5-73.1) % Lymph % (Auto) 30.7 (18.3-44.2) % [place] % (Auto) 7.2 (2.6-8.5) % Eos % (Auto) 0.6 (0-4.4) % Baso % (Auto) 0.8 (0.2-1.2) % Lymph # (Auto) 2.60 (0.9-3.2) K/mm3 [place] # (Auto) 0.6 (0.1-0.6) K/mm3 Eos # (Auto) 0.1 (0-0.3) K/mm3 Baso # (Auto) 0.1 (0.0-0.1) K/mm3 Abs Immat Gran (auto) 0.05 H (0.00-0.031) K/mm3 Absolute Neuts (auto) 5.1 (1.3-6.7) K/mm3 Absolute Nucleated RBC 0.000 (0.0-0.012) K/mm3 Nucleated RBC % 0.0 (0.0-0.2) % PT 13.0 (11.1-14.7) Seconds INR 1.0 APTT 26.8 (22.3-36.8) Seconds D-Dimer < 0.27 (<0.48) ug/mL Sodium 138 (137-145) mmol/L Potassium 4.0 (3.4-5.0) mmol/L Chloride 105 (98-107) mmol/L Carbon Dioxide 24 (22-30) mmol/L Anion Gap 9 (4-12) mmol/L BUN 15 (9-20) mg/dL Creatinine 0.95 (0.7-1.3) mg/dL Estim Creat Clear Calc 152 ml/min Estimated GFR > 60 (59 - ) Glucose 112 H (65-110) mg/dL Lactic Acid 1.8 (0.7-2.0) mmol/L Calcium 9.1 (8.4-10.2) mg/dL Magnesium 2.0 (1.6-2.3) mg/dL Total Bilirubin 0.7 (0.2-1.3) mg/dL AST 42 (17-59) U/L ALT 70 H (6-50) U/L Alkaline Phosphatase 93 (38-126) U/L Troponin I < 0.012 < 0.012 (0.000-0.034) ng/mL Total Protein 8.0 (6.3-8.2) g/dL Albumin 4.5 (3.5-5.1) g/dL Lipase 117 (23-300) U/L <Liv Lebron, MANAGER OF [employer] - Last Filed: 02/11/25 12:42> Lab Results 02/11/25 02/11/25 Range/Units 12:43 17:57 WBC 8.5 (4.5-10.0) K/mm3 RBC 5.38 (4.6-6.20) M/mm3 Hgb 15.7 (14.0-18.0) g/dL Hct 46.5 (42.0-52.0) % MCV 86.4 (80-100) fl MCH 29.2 (26-34) pg MCHC 33.8 (32-36) g/dl RDW 13.6 (11.5-14.5) % Plt Count 281 (150-375) k/mm3 MPV 9.7 (7.4-10.4) fl Immature Gran % (Auto) 0.6 H (0-0.5) % Neut % (Auto) 60.1 (45.5-73.1) % Lymph % (Auto) 30.7 (18.3-44.2) % [place] % (Auto) 7.2 (2.6-8.5) % Eos % (Auto) 0.6 (0-4.4) % Baso % (Auto) 0.8 (0.2-1.2) % Lymph # (Auto) 2.60 (0.9-3.2) K/mm3 [place] # (Auto) 0.6 (0.1-0.6) K/mm3 Eos # (Auto) 0.1 (0-0.3) K/mm3 Baso # (Auto) 0.1 (0.0-0.1) K/mm3 Abs Immat Gran (auto) 0.05 H (0.00-0.031) K/mm3 Absolute Neuts (auto) 5.1 (1.3-6.7) K/mm3 Absolute Nucleated RBC 0.000 (0.0-0.012) K/mm3 Nucleated RBC % 0.0 (0.0-0.2) % PT 13.0 (11.1-14.7) Seconds INR 1.0 APTT 26.8 (22.3-36.8) Seconds D-Dimer < 0.27 (<0.48) ug/mL Sodium 138 (137-145) mmol/L Potassium 4.0 (3.4-5.0) mmol/L Chloride 105 (98-107) mmol/L Carbon Dioxide 24 (22-30) mmol/L Anion Gap 9 (4-12) mmol/L BUN 15 (9-20) mg/dL Creatinine 0.95 (0.7-1.3) mg/dL Estim Creat Clear Calc 152 ml/min Estimated GFR > 60 (59 - ) Glucose 112 H (65-110) mg/dL Lactic Acid 1.8 (0.7-2.0) mmol/L Calcium 9.1 (8.4-10.2) mg/dL Magnesium 2.0 (1.6-2.3) mg/dL Total Bilirubin 0.7 (0.2-1.3) mg/dL AST 42 (17-59) U/L ALT 70 H (6-50) U/L Alkaline Phosphatase 93 (38-126) U/L Troponin I < 0.012 < 0.012 (0.000-0.034) ng/mL Total Protein 8.0 (6.3-8.2) g/dL Albumin 4.5 (3.5-5.1) g/dL Lipase 117 (23-300) U/L <Rebeka Wallace PA-C - Last Filed: 02/11/25 19:10> Imaging Data Attestation: I personally reviewed and interpreted this imaging study as follows: <Rebeka Wallace PA-C Last Filed: 02/11/25 19:10> Radiologist's impression: ITS Impressions Chest X-Ray 02/11/25 13:43 IMPRESSION: 1. Mild lingular atelectasis. No other acute cardiopulmonary disease. <Rebeka Wallace PA-C - Last Filed: 02/11/25 19:10> ECG Data EKG #1: Attestation: I personally reviewed and interpreted this ECG as follows: <ALEJANDRA Harrell Last Filed: 02/11/25 19:10> ECG completion date: 02/11/25 <ALEJANDRA Harrell Last Filed: 02/11/25 19:10> ECG completion time: 12:35 <ALEJANDRA Harrell Last Filed: 02/11/25 19:10> EKG Interpretation: tachycardia (120), sinus rhythm and non-specific ST changes <Rebeka Wallace PA-C - Last Filed: 02/11/25 19:10> Discharge Plan Discharge Clinical Impression: Atypical chest pain, Pain provoked by eating <Liv Lebron APRN - Last Filed: 02/11/25 12:42> Patient Disposition: Home <Liv Lebron APRN - Last Filed: 02/11/25 12:42> Condition: Stable <Liv Lebron APRN - Last Filed: 02/11/25 12:42> Instructions: Antibiotic Form, Chest Pain (ED), Chest Wall Pain (ED) <Liv Lebron APRN - Last Filed: 02/11/25 12:42> Additional Instructions: Your workup here was reassuring against a cardiac cause of your chest pain. Take Protonix daily. Follow-up with GI for further evaluation. Recommend eating small bites of food, chewing thoroughly. Continue to monitor your blood pressures at home and keep a recording of these numbers. Follow-up with your primary care doctor. Call offices to make appointments. Return to the ED if you experience worsening or severe pain, significant difficulty breathing, unable to keep down food or drink, persistent fevers, pain or swelling in your legs, or any other symptoms of concern. <Liv Lebron APRN - Last Filed: 02/11/25 12:42> Patient Language: Georgian <Liv Lebron APRN - Last Filed: 02/11/25 12:42> Prescriptions: New pantoprazole [Protonix] 40 mg tablet,delayed release (DR/EC) 40 mg PO HS 28 Days Qty: 28 0RF No Action fluticasone propionate [Flonase Allergy Relief] 50 mcg/actuation spray,suspension 2 spray intranasal DAILY Qty: 16 0RF Rx Instructions: administer into each nostril irbesartan-hydrochlorothiazide 300-12.5 mg tablet 1 tablet PO DAILY Qty: 90 3RF CBD topical 4-6XD amlodipine 2.5 mg tablet 2.5 mg PO DAILY Qty: 90 3RF omeprazole 20 mg tablet,delayed release (DR/EC) 20 mg PO DAILY Qty: 90 3RF <Liv Lebron APRN - Last Filed: 02/11/25 12:42> Follow-up/Referrals: Renato Jean MD [Primary Care Provider, Family Practice] Iftikhar Awad MD [Physician, Gastroenterology] Referral Note: GI <Liv Lebron APRN - Last Filed: 02/11/25 12:42> Time of Disposition: 19:08 <Liv Lebron APRN - Last Filed: 02/11/25 12:42> 19:08 <Rebeka Wallace PA-C - Last Filed: 02/11/25 19:10> Quality HEART score for chest pain patients History: slightly suspicious <Rebeka Wallace PA-C - Last Filed: 02/11/25 19:10> ECG: normal <Rebeak Wallace PA-C - Last Filed: 02/11/25 19:10> Age: < or = to 45 years <Rebeka Wallace PA-C - Last Filed: 02/11/25 19:10> Risk factors: 1 or 2 risk factors <Rebeka Wallace PA-C - Last Filed: 02/11/25 19:10> Troponin: < or = to 1x normal limit <Rebeka Wallace PA-C - Last Filed: 02/11/25 19:10> Heart score: 1 <Rebeka Wallace PA-C - Last Filed: 02/11/25 19:10>
[2025-02-11 12:49] LABS: Hematocrit 46.5 % (42.0-52.0); Hemoglobin 15.7 g/dL (14.0-18.0); Immature Granulocyte Percent A 0.6 % (0-0.5); Lymphocytes Absolute Auto 2.60 K/mm3 (0.9-3.2); Mean Corpuscular HGB Conc 33.8 g/dl (32-36); Mean Corpuscular Hemoglobin 29.2 pg (26-34); Mean Corpuscular Volume 86.4 fl (80-100); Nucleated Red Blood Cells Absolute Auto 0.000 K/mm3 (0.0-0.012); Nucleated Red Blood Cells Perc 0.0 % (0.0-0.2); Platelet Count Result 281 k/mm3 (150-375); Red Blood Count 5.38 M/mm3 (4.6-6.20); White Blood Count 8.5 K/mm3 (4.5-10.0)
[2025-02-11 13:05] LABS: Partial Thromboplastin Time 26.8 Seconds (22.3-36.8)
[2025-02-11 13:06] LABS: INR 1.0; Prothrombin Time 13.0 Seconds (11.1-14.7)
[2025-02-11 13:08] LABS: Alanine Aminotransferase 70 U/L (6-50); Albumin Level 4.5 g/dL (3.5-5.1); Alkaline Phosphatase 93 U/L (38-126); Anion Gap 9 mmol/L (4-12); Aspartate Amino Transferase 42 U/L (17-59); Bilirubin,Total 0.7 mg/dL (0.2-1.3); Blood Urea Nitrogen 15 mg/dL (9-20); Calcium 9.1 mg/dL (8.4-10.2); Carbon Dioxide 24 mmol/L (22-30); Chloride 105 mmol/L (98-107); Estimated CRCL calculation 152 ml/min; Estimated Glomerular Filt Rate > 60; Glucose 112 mg/dL (65-110); Lipase 117 U/L (23-300); Potassium 4.0 mmol/L (3.4-5.0); Sodium 138 mmol/L (137-145); Total Protein 8.0 g/dL (6.3-8.2)
[2025-02-11 13:13] LABS: Troponin I < 0.012 ng/mL (0.000-0.034)
[2025-02-11 17:30] VITALS: BP 160/107; PULSE 108; RESP 20; O2SAT 98
--- NOTE | 2025-02-11 17:54 | ED_ITS ---
HPI - Chest Pain General Chief Complaint: Chest Pain Stated Complaint: CP while eating lunch Time Seen by Provider: 02/11/25 17:34 Related Data Home Medications ?Medication ?Instructions ?Recorded ?Confirmed ?Last Taken ?Type CBD topical 4-6XD 06/29/2401/11 Unknown History Allergies Allergy/AdvReac Type Severity Reaction Status Date / Time No Known Drug Allergies Allergy Mild Other Verified 11/11/24 11:35 [facility] Past Medical History Medical History (Updated 01/11/25 @ 08:23 by Renato Jean MD) BMI 37.0-37.9, adult Acute non-recurrent maxillary sinusitis Mixed hyperlipidemia cholesterol 224, triglycerides 307, HDL 40, LDL 140 with ratio 5.6 on 06/20/2024. Chronic low back pain without sciatica Encounter for wellness examination in adult Seasonal allergic rhinitis Chronic tonsillar hypertrophy BMI 36.0-36.9,adult Obesity (BMI 30-39.9) Dysphagia GERD (gastroesophageal reflux disease) normal EGD 08/14/2024 with esophageal ring dilated. chronic reflux esophagitis on biopsies. Essential hypertension History of high blood pressure Surgical History Surgical History No pertinent past surgical history Family History Family History Mother Family history non-contributory Social History Social History Smoking status: Never smoker Alcohol intake: current Substance use: never Substance use type: does not use Living arrangements: with family Gender identity (if verbalized by the patient): Male Sexual Orientation (if Verbalized by the Patient): Straight or Heterosexual Spiritual care concerns: No Course Vital Signs Vital signs: Vital Signs Temperature 97.3 F L 02/11/25 12:35 Pulse Rate 114 H 02/11/25 12:35 Respiratory Rate 16 02/11/25 12:35 Blood Pressure 133/93 H 02/11/25 12:35 Pulse Oximetry 98 02/11/25 12:35 Temperature 97.3 F L 02/11/25 12:35 Pulse Rate 108 H 02/11/25 17:30 Respiratory Rate 20 02/11/25 17:30 Blood Pressure 160/107 H 02/11/25 17:30 Pulse Oximetry 98 02/11/25 17:30 Oxygen Delivery Room Air 02/11/25 17:36 MDM - Chest Pain Medical Records Data Attestation: I reviewed the patient's medical records. Lab Data Attestation: I reviewed the patient's lab results. 02/11/25 12:43 02/11/25 12:43 Labs: Lab Results 02/11/25 Range/Units 12:43 WBC 8.5 (4.5-10.0) K/mm3 RBC 5.38 (4.6-6.20) M/mm3 Hgb 15.7 (14.0-18.0) g/dL Hct 46.5 (42.0-52.0) % MCV 86.4 (80-100) fl MCH 29.2 (26-34) pg MCHC 33.8 (32-36) g/dl RDW 13.6 (11.5-14.5) % Plt Count 281 (150-375) k/mm3 MPV 9.7 (7.4-10.4) fl Immature Gran % (Auto) 0.6 H (0-0.5) % Neut % (Auto) 60.1 (45.5-73.1) % Lymph % (Auto) 30.7 (18.3-44.2) % [place] % (Auto) 7.2 (2.6-8.5) % Eos % (Auto) 0.6 (0-4.4) % Baso % (Auto) 0.8 (0.2-1.2) % Lymph # (Auto) 2.60 (0.9-3.2) K/mm3 [place] # (Auto) 0.6 (0.1-0.6) K/mm3 Eos # (Auto) 0.1 (0-0.3) K/mm3 Baso # (Auto) 0.1 (0.0-0.1) K/mm3 Abs Immat Gran (auto) 0.05 H (0.00-0.031) K/mm3 Absolute Neuts (auto) 5.1 (1.3-6.7) K/mm3 Absolute Nucleated RBC 0.000 (0.0-0.012) K/mm3 Nucleated RBC % 0.0 (0.0-0.2) % PT 13.0 (11.1-14.7) Seconds INR 1.0 APTT 26.8 (22.3-36.8) Seconds D-Dimer < 0.27 (<0.48) ug/mL Sodium 138 (137-145) mmol/L Potassium 4.0 (3.4-5.0) mmol/L Chloride 105 (98-107) mmol/L Carbon Dioxide 24 (22-30) mmol/L Anion Gap 9 (4-12) mmol/L BUN 15 (9-20) mg/dL Creatinine 0.95 (0.7-1.3) mg/dL Estim Creat Clear Calc 152 ml/min Estimated GFR > 60 (59 - ) Glucose 112 H (65-110) mg/dL Calcium 9.1 (8.4-10.2) mg/dL Total Bilirubin 0.7 (0.2-1.3) mg/dL AST 42 (17-59) U/L ALT 70 H (6-50) U/L Alkaline Phosphatase 93 (38-126) U/L Troponin I < 0.012 (0.000-0.034) ng/mL Total Protein 8.0 (6.3-8.2) g/dL Albumin 4.5 (3.5-5.1) g/dL Lipase 117 (23-300) U/L Imaging Data Attestation: I personally reviewed and interpreted this imaging study as follows: ECG Data EKG #1: Attestation: I personally reviewed and interpreted this ECG as follows: ECG completion date: 02/11/25 ECG completion time: 12:35 EKG Interpretation: tachycardia (120), sinus rhythm and non-specific ST changes Discharge Plan Discharge Patient Language: Nigerian Prescriptions: No Action fluticasone propionate [Flonase Allergy Relief] 50 mcg/actuation spray,suspension 2 spray intranasal DAILY Qty: 16 0RF Rx Instructions: administer into each nostril irbesartan-hydrochlorothiazide 300-12.5 mg tablet 1 tablet PO DAILY Qty: 90 3RF CBD topical 4-6XD amlodipine 2.5 mg tablet 2.5 mg PO DAILY Qty: 90 3RF omeprazole 20 mg tablet,delayed release (DR/EC) 20 mg PO DAILY Qty: 90 3RF Follow-up/Referrals: Renato Jean MD [Primary Care Provider, [facility]]
[2025-02-11] MEDS: ACETAMINOPHEN 500 MG TABLET 1000 MG PO (18:09)
[2025-02-11] MEDS: PANTOPRAZOLE SODIUM IV 40 MG VIAL IV PUSH (18:10)
[2025-02-11] MEDS: BELLADONNA ALK/PHENOB ELIX 10 ML, MAG HYDROX/ALUMINUM HYD/SIMETH 30 ML, LIDOCAINE 2% VI... PO (18:13)
[2025-02-11 18:16] LABS: Magnesium 2.0 mg/dL (1.6-2.3)
[2025-02-11] MEDS: SODIUM CHLORIDE 0.9% IV 1,000 ML 999 ML IV CONT (18:20)
[2025-02-11 18:27] LABS: Troponin I < 0.012 ng/mL (0.000-0.034)
[2025-02-11 19:03] VITALS: BP 140/90; PULSE 100; RESP 18; O2SAT 97
[2025-02-11 19:33] VITALS: BP 148/85; PULSE 76; RESP 18; O2SAT 99
== END 2025-02-11 19:34 | disposition home or self-care (01) ==
PROVIDERS: Emergency Medicine; Registered Nurse; Emergency Provider Physician Assistant; PCP Family Medicine
DX: R07.89 Other chest pain (principal); I10 Essential (primary) hypertension; E66.9 Obesity, unspecified; Z68.37 Body mass index [BMI] 37.0-37.9, adult; K21.9 Gastro-esophageal reflux disease without esophagitis; Z79.899 Other long term (current) drug therapy; R00.0 Tachycardia, unspecified; R94.31 Abnormal electrocardiogram [ECG] [EKG]
CPT/HCPCS: 36415; 71046; 80053; 83605; 83690; 83735; 84484; 85025; 85380; 85610; 85730; 93005; 96361; 96374; 99284; A9270; J2470; J7030